=== PATIENT | male | born 1960 | race Caucasian/White ===

== ENCOUNTER 2017-10-26 16:52 | Emergency (ER) | payer SELFPAY ==
[~2017-10-26] VITALS: Ht 167.6 cm; Wt 57.1 kg
[~2017-10-26 16:52] MED LIST: CIPR500T4 PO; MAG355OR15 PO; OMEP20CA9 PO
[2017-10-26 17:07] VITALS: Ht 167.6 cm; Wt 57.1 kg
== END 2017-10-26 22:44 | disposition left against medical advice (07) ==
LOC: E/R 16:52
DX: Z53.21 Procedure and treatment not carried out due to patient leaving prior to being seen by health care provider (principal)

== ENCOUNTER 2018-07-04 22:37 | Emergency (ER) | END 2018-07-05 03:50 | disposition home or self-care (01) ==

== ENCOUNTER 2018-07-06 22:00 | Emergency (ER) | END 2018-07-07 00:55 | disposition left against medical advice (07) ==

== ENCOUNTER 2018-07-08 05:32 | Emergency (ER) | END 2018-07-08 08:09 | disposition left against medical advice (07) ==

== ENCOUNTER 2018-07-09 21:22 | Emergency (ER) | END 2018-07-10 05:26 | disposition home or self-care (01) ==